=== PATIENT | female | born 1940 | race Caucasian/White ===

== ENCOUNTER → 2017-08-24 | Outpatient (CLI) | payer OTHER ==
[~2017-08-24] MED LIST: Augmentin 875-1 EACH PO; CELE100 PO; HYDR-86 PO; LEVSOD50 PO; LOSA25; OXYACE5T PO; PROM25S PR; Prilosec Otc20 MG PO; [UNRECOGNIZED DRUG - REMARK]
[2017-08-24 14:34] LABS: BASOPHILS ABSOLUTE AUTO 0.05 K/mm3 (0.00-0.23); BASOPHILS PERCENT AUTO 1 % (0-2); EOSINOPHILS ABSOLUTE AUTO 0.06 K/mm3 (0.00-0.68); EOSINOPHILS PERCENT AUTO 1 % (0-6); Hematocrit 39.1 % (33.0-51.0); Hemoglobin 13.2 g/dL (11.5-16.0); IMMATURE GRAN ABSOLUTE AUTO 0.01 K/mm3 (0.00-0.10); IMMATURE GRAN PERCENT AUTO 0 % (0-1); LYMPHOCYTES ABSOLUTE AUTO 1.99 K/mm3 (0.84-5.20); LYMPHOCYTES PERCENT AUTO 33 % (21-46); MONOCYTES PERCENT AUTO 8 % (4-13); Mean Corpuscular HGB 32.9 pg (26.0-34.0); Mean Corpuscular HGB Conc 33.8 g/dL (31.5-36.5); Mean Corpuscular Volume 98 fL (80-100); Mean Platelet Volume 10.7 fL (9.1-12.4); NEUTROPHILS ABSOLUTE AUTO 3.47 K/mm3 (1.96-9.15); NEUTROPHILS PERCENT AUTO 57 % (41-73); Platelet Count 273 K/mm3 (150-400); RDW Coefficient Variation 13.1 % (11.7-14.2); RDW Standard Deviation 46.8 fL (35.1-46.3); Red Blood Cell Count 4.01 M/mm3 (3.80-5.20); White Blood Cell Count 6.08 K/mm3 (4.00-11.30)
[2017-08-24 14:48] LABS: Anion Gap 11 mmol/L (6-16); Blood Urea Nitrogen 16 mg/dL (8-24); Bun/Creatinine Ratio 15.7 (12.0-20.0); CO2, Blood 27 mmol/L (21-32); Calcium, Blood 9.7 mg/dL (8.5-10.1); Chloride, Blood 104 mmol/L (98-108); Creatinine, Blood 1.02 mg/dL (0.40-1.00); Glomerular Filtration Rate 53 (60-); Glucose, Blood 119 mg/dL (70-99); Sodium, Blood 142 mmol/L (136-145)
[2017-08-24 14:52] LABS: Troponin I <0.017 ng/mL (0.000-0.040)
== END ==
LOC: LAB SHORT 14:30 → LAB EV 14:30
PROVIDERS: Family Medicine
DX: I12.9 Hypertensive chronic kidney disease with stage 1 through stage 4 chronic kidney disease, or unspecified chronic kidney disease (principal); N18.2 Chronic kidney disease, stage 2 (mild); E78.2 Mixed hyperlipidemia; E16.2 Hypoglycemia, unspecified
CPT/HCPCS: 80048; 84484; 85025

== ENCOUNTER 2017-08-26 04:24 | Emergency (ER) | payer OTHER ==
[~2017-08-26] VITALS: Ht 162.6 cm; Wt 83.9 kg
[2017-08-26 05:12] LABS: BASOPHILS ABSOLUTE AUTO 0.05 K/mm3 (0.00-0.23); BASOPHILS PERCENT AUTO 1 % (0-2); EOSINOPHILS PERCENT AUTO 2 % (0-6); Hematocrit 37.6 % (33.0-51.0); Hemoglobin 12.3 g/dL (11.5-16.0); IMMATURE GRAN ABSOLUTE AUTO 0.01 K/mm3 (0.00-0.10); IMMATURE GRAN PERCENT AUTO 0 % (0-1); LYMPHOCYTES ABSOLUTE AUTO 2.26 K/mm3 (0.84-5.20); LYMPHOCYTES PERCENT AUTO 35 % (21-46); MONOCYTES ABSOLUTE AUTO 0.67 K/mm3 (0.16-1.47); MONOCYTES PERCENT AUTO 10 % (4-13); Mean Corpuscular HGB 32.5 pg (26.0-34.0); Mean Corpuscular HGB Conc 32.7 g/dL (31.5-36.5); Mean Corpuscular Volume 100 fL (80-100); Mean Platelet Volume 10.3 fL (9.1-12.4); NEUTROPHILS ABSOLUTE AUTO 3.42 K/mm3 (1.96-9.15); NEUTROPHILS PERCENT AUTO 53 % (41-73); Platelet Count 267 K/mm3 (150-400); RDW Coefficient Variation 13.1 % (11.7-14.2); Red Blood Cell Count 3.78 M/mm3 (3.80-5.20); White Blood Cell Count 6.51 K/mm3 (4.00-11.30)
[2017-08-26 05:25] LABS: Source, Urine Clean Catch
[2017-08-26 05:27] LABS: Bilirubin, Urine Neg (Neg); Blood, Urine Neg (Neg); Glucose Qualitative, Urine Neg (Neg); Ketones, Urine Neg (Neg); Leukocyte Esterase, Urine Neg (Neg); Nitrite, Urine Neg (Neg); Protein, Urine Neg (Neg); Specific Gravity, Urine 1.005 (1.003-1.022); Urobilinogen, Urine NORM (Normal)
[2017-08-26 05:30] LABS: Appearance, Urine Clear (Clear); Color, Urine Yellow (P-Yellow)
[2017-08-26 05:35] LABS: Alanine Aminotransfer (ALT/SGP 28 U/L (12-78); Albumin, Blood 3.7 g/dL (3.4-5.0); Albumin/Globulin Ratio 1.2 (0.8-1.8); Alk Phos 61 U/L (50-136); Anion Gap 6 mmol/L (6-16); Aspartate Aminotrans (AST/SGOT 23 U/L (12-37); Bilirubin, Total 0.2 mg/dL (0.1-1.0); Blood Urea Nitrogen 15 mg/dL (8-24); Bun/Creatinine Ratio 17.6 (12.0-20.0); CO2, Blood 25 mmol/L (21-32); Calcium, Blood 8.8 mg/dL (8.5-10.1); Chloride, Blood 109 mmol/L (98-108); Creatinine, Blood 0.85 mg/dL (0.40-1.00); Globulin, Blood 3.2 g/dL (2.2-4.0); Glomerular Filtration Rate >60 (60-); Glucose, Blood 112 mg/dL (70-99); Potassium, Blood 3.9 mmol/L (3.5-5.5); Sodium, Blood 140 mmol/L (136-145); Total Protein, Blood 6.9 g/dL (6.4-8.2); Troponin I <0.015 ng/mL (0.000-0.040)
== END 2017-08-26 06:16 | disposition home or self-care (01) ==
LOC: ER 04:24
PROVIDERS: Emergency Medicine
DX: I10 Essential (primary) hypertension (principal); Z88.2 Allergy status to sulfonamides; Z88.8 Allergy status to other drugs, medicaments and biological substances; Z79.899 Other long term (current) drug therapy; Z79.2 Long term (current) use of antibiotics
CPT/HCPCS: 36415; 71046; 80053; 81003; 84484; 85025; 93005; 93010; 99283

== ENCOUNTER → 2017-10-13 | Outpatient (CLI) | payer OTHER | END | disposition home or self-care (01) | LOC: OLS 15:32 → LAB SHORT 15:32 | PROVIDERS: Obstetrics & Gynecology Gynecology | DX: Z91.89 Other specified personal risk factors, not elsewhere classified (principal) | CPT/HCPCS: 87624; G0123 ==

== ENCOUNTER → 2017-12-07 | Outpatient (CLI) | payer OTHER ==
[2017-12-07 15:03] LABS: BASOPHILS ABSOLUTE AUTO 0.06 K/mm3 (0.00-0.23); BASOPHILS PERCENT AUTO 1 % (0-2); EOSINOPHILS ABSOLUTE AUTO 0.07 K/mm3 (0.00-0.68); EOSINOPHILS PERCENT AUTO 1 % (0-6); Hematocrit 42.5 % (33.0-51.0); Hemoglobin 13.8 g/dL (11.5-16.0); IMMATURE GRAN ABSOLUTE AUTO 0.02 K/mm3 (0.00-0.10); IMMATURE GRAN PERCENT AUTO 0 % (0-1); LYMPHOCYTES ABSOLUTE AUTO 2.09 K/mm3 (0.84-5.20); LYMPHOCYTES PERCENT AUTO 29 % (21-46); MONOCYTES ABSOLUTE AUTO 0.81 K/mm3 (0.16-1.47); MONOCYTES PERCENT AUTO 11 % (4-13); Mean Corpuscular HGB 32.9 pg (26.0-34.0); Mean Corpuscular HGB Conc 32.5 g/dL (31.5-36.5); Mean Corpuscular Volume 101 fL (80-100); Mean Platelet Volume 10.7 fL (9.1-12.4); NEUTROPHILS ABSOLUTE AUTO 4.28 K/mm3 (1.96-9.15); NEUTROPHILS PERCENT AUTO 58 % (41-73); Platelet Count 272 K/mm3 (150-400); RDW Coefficient Variation 13.2 % (11.7-14.2); RDW Standard Deviation 49.7 fL (35.1-46.3); White Blood Cell Count 7.33 K/mm3 (4.00-11.30)
[2017-12-07 15:27] LABS: Anion Gap 10 mmol/L (6-16); Blood Urea Nitrogen 14 mg/dL (8-24); Bun/Creatinine Ratio 13.2 (12.0-20.0); CO2, Blood 27 mmol/L (21-32); Calcium, Blood 9.7 mg/dL (8.5-10.1); Chloride, Blood 103 mmol/L (98-108); Creatinine, Blood 1.06 mg/dL (0.40-1.00); Glomerular Filtration Rate 51 (60-); Glucose, Blood 107 mg/dL (70-99); Sodium, Blood 140 mmol/L (136-145); Thyroid Stimulating Hormone 0.768 uIU/mL (0.360-4.800); Troponin I <0.017 ng/mL (0.000-0.040)
== END | disposition home or self-care (01) ==
LOC: LAB SHORT 15:00 → LAB EV 15:00
PROVIDERS: Family Medicine
DX: E03.9 Hypothyroidism, unspecified (principal); R00.2 Palpitations
CPT/HCPCS: 80048; 84443; 84484; 85025

== ENCOUNTER → 2018-10-19 | Outpatient (CLI) | payer OTHER ==
[~2018-10-19] MED LIST changes: +ACET500 PO; +B Complex-Foli1 EACH PO; +CALCITRATE200 MG PO; +CLON.1 PO; +COQ1050 MG PO; +D-RIBOSE1 GM PO; +DOCU100 PO; +FLAX PO; +GLUCOSAMINE CH1 EAC3 PO; +GUAI600T33 PO; +HYDCHL12.5 PO; +HYDCHL25 PO; +LOSA50 PO; +MELATONIN5 M1 PO; +METO25ER PO; +OMEPRAZOLE20 MG PO; +PROGESTERONE CREAM VAG; +Red Yeast Rice600 MG PO; +VITAMIN D34000 UNIT PO; +[UNRECOGNIZED DRUG - OTHER] PO
[2018-10-21 13:07] LABS: HPV 16 Negative (Negative); HPV 18 Negative (Negative); HPV OTHER HR TYPES Negative (Negative)
== END | disposition home or self-care (01) ==
LOC: LAB 17:36 → LAB SHORT 17:36
PROVIDERS: Obstetrics & Gynecology Gynecology
DX: Z91.89 Other specified personal risk factors, not elsewhere classified (principal)
CPT/HCPCS: 87624; G0123

== ENCOUNTER 2019-03-07 13:03 | Day surgery (SDC) | payer OTHER ==
[~2019-03-07] VITALS: Ht 162 cm; Wt 84.5 kg
--- NOTE | 2019-03-07 13:51 | NUR ---
Ambulatory in Day Surgery History, Chart, Medications and Allergies reviewed before start of procedure.Patient confirms NPO status and agrees with scheduled surgery. Patient reports completing Chlorhexadine shower X2 prior to admission to hospital.Surgical site prepped with 2% Chlorhexidine cloth wipe.
--- NOTE | 2019-03-07 18:52 | NUR ---
PT HAS BEEN STABLE POST OP. PT REMAINS NUMB FROM WAIST DOWN R/T SPINAL ANESTHESIA. PT HAS NOT HAS VOID YET POST OP. NO PAIN. PAS, TEDS AND POLAR PACK IN PLACE. CONT IV FLUIDS ORDERED. AQUACEL CDI. PT TOLERATING REGULAR DIET. VISITING IN ROOM WITH FRIEND. USES CALL LIGHT APPROPRIATELY NEEDED.
[2019-03-08 04:16] LABS: BASOPHILS ABSOLUTE AUTO 0.03 K/mm3 (0.00-0.23); BASOPHILS PERCENT AUTO 0 % (0-2); EOSINOPHILS PERCENT AUTO 0 % (0-6); Hematocrit 33.3 % (33.0-51.0); Hemoglobin 10.9 g/dL (11.5-16.0); IMMATURE GRAN ABSOLUTE AUTO 0.04 K/mm3 (0.00-0.10); IMMATURE GRAN PERCENT AUTO 0 % (0-1); LYMPHOCYTES ABSOLUTE AUTO 1.26 K/mm3 (0.84-5.20); LYMPHOCYTES PERCENT AUTO 10 % (21-46); MONOCYTES ABSOLUTE AUTO 0.97 K/mm3 (0.16-1.47); MONOCYTES PERCENT AUTO 8 % (4-13); Mean Corpuscular HGB 33.4 pg (26.0-34.0); Mean Corpuscular HGB Conc 32.7 g/dL (31.5-36.5); Mean Corpuscular Volume 102 fL (80-100); Mean Platelet Volume 10.9 fL (9.1-12.4); NEUTROPHILS ABSOLUTE AUTO 10.21 K/mm3 (1.96-9.15); NEUTROPHILS PERCENT AUTO 82 % (41-73); Platelet Count 222 K/mm3 (150-400); RDW Coefficient Variation 13.2 % (11.7-14.2); Red Blood Cell Count 3.26 M/mm3 (3.80-5.20); White Blood Cell Count 12.51 K/mm3 (4.00-11.30)
[2019-03-08 04:36] LABS: Bun/Creatinine Ratio 18.9 (12.0-20.0); Calcium, Blood 8.6 mg/dL (8.5-10.1); Creatinine, Blood 1.27 mg/dL (0.40-1.00); Magnesium, Blood 1.9 mg/dL (1.6-2.4); Potassium, Blood 4.2 mmol/L (3.5-5.5)
--- NOTE | 2019-03-08 06:09 | NUR ---
SHIFT SUMMARY: VITOR IS POD1 FOR A LEFT TKA. SHE AMBULATES WITH A GAIT BELT AND FWW, ONE PERSON ASSIST. AQUACELL C/D&I. A&OX4. BEN, PAS AND POLAR PACK IN PLACE. SHE IS UTILIZING THE BEDSIDE COMMODE. BRISK CAPILLARY REFILL BLE. SHE REPORTS THAT THE TORADOL AND TYLENOL ARE CONTROLLING HER PAIN. SHE IS LYING IN BED WITH HER CALL LIGHT IN REACH. SHE IS TOLERATING PO INTAKE WELL.
--- NOTE | 2019-03-08 08:22 | NUR ---
03/08/19 0822 Niya Reese VERIFICATIONS, AUDITS.
[2019-03-08] MEDS ORDERED: ROXICODONE5 MG PO (08:56)
[2019-03-08] MEDS ORDERED: OXYC5 PO (11:19)
[2019-03-08] MEDS ORDERED: ASPI81CH PO (11:19)
--- NOTE | 2019-03-08 15:10 | NUR ---
DISCHARGE PT CLEARED THERAPY, TOLERALTING DIET, PAIN TOLERABLE, VOIDING. SCRIPT & DRSGS SENT. ESCORTED OUT VIA W/C.
== END 2019-03-08 15:22 | disposition home or self-care (01) ==
LOC: ORSCMMR 13:03 → ORD 14:30 → SURS 17:05 → ORSCMMR 03-08 15:22 → ORD 03-11 09:00
PROVIDERS: Orthopaedic Surgery
PROC: 0SRD0J9 Replacement of Left Knee Joint with Synthetic Substitute, Cemented, Open Approach (ICD-10-PCS; principal; 2019-03-07 14:30)
DX: M17.12 Unilateral primary osteoarthritis, left knee (principal); I10 Essential (primary) hypertension; E03.9 Hypothyroidism, unspecified; E66.8 Other obesity; Z68.32 Body mass index [BMI] 32.0-32.9, adult; Z79.899 Other long term (current) drug therapy
CPT/HCPCS: 36415; 73560-LT; 80048; 83735; 85025; 88300; 97110; 97116; 97162; 97530; C1713; C1776; J0171; J0690; J0735; J1100; J1885; J2250; J2405; J2704; J2795; J3010; J7120

== ENCOUNTER → 2019-06-02 | Outpatient (CLI) | payer OTHER ==
[~2019-06-02] MED LIST changes: +ASPI81CH PO; +OXYC5 PO; +ROXICODONE5 MG PO
[2019-06-02 14:48] LABS: BASOPHILS ABSOLUTE AUTO 0.06 K/mm3 (0.00-0.23); BASOPHILS PERCENT AUTO 1 % (0-2); EOSINOPHILS ABSOLUTE AUTO 0.09 K/mm3 (0.00-0.68); EOSINOPHILS PERCENT AUTO 1 % (0-6); Hemoglobin 12.8 g/dL (11.5-16.0); IMMATURE GRAN ABSOLUTE AUTO 0.02 K/mm3 (0.00-0.10); IMMATURE GRAN PERCENT AUTO 0 % (0-1); LYMPHOCYTES PERCENT AUTO 28 % (21-46); MONOCYTES ABSOLUTE AUTO 0.92 K/mm3 (0.16-1.47); MONOCYTES PERCENT AUTO 11 % (4-13); Mean Corpuscular HGB 32.6 pg (26.0-34.0); Mean Corpuscular HGB Conc 32.8 g/dL (31.5-36.5); Mean Corpuscular Volume 99 fL (80-100); Mean Platelet Volume 11.3 fL (9.1-12.4); NEUTROPHILS ABSOLUTE AUTO 5.21 K/mm3 (1.96-9.15); NEUTROPHILS PERCENT AUTO 60 % (41-73); Platelet Count 321 K/mm3 (150-400); RDW Coefficient Variation 13.3 % (11.7-14.2); RDW Standard Deviation 48.5 fL (35.1-46.3); Red Blood Cell Count 3.93 M/mm3 (3.80-5.20)
[2019-06-02 16:19] LABS: Anion Gap 6 mmol/L (6-16); Blood Urea Nitrogen 24 mg/dL (8-24); Bun/Creatinine Ratio 18.5 (12.0-20.0); CO2, Blood 27 mmol/L (21-32); Calcium, Blood 9.4 mg/dL (8.5-10.1); Chloride, Blood 105 mmol/L (98-108); Glomerular Filtration Rate 42 (60-); Glucose, Blood 113 mg/dL (70-99); Potassium, Blood 4.3 mmol/L (3.5-5.5); Sodium, Blood 138 mmol/L (136-145); Troponin I <0.015 ng/mL (0.000-0.040)
[2019-06-02 16:24] LABS: Thyroid Stimulating Hormone 0.779 uIU/mL (0.360-4.800)
== END | disposition home or self-care (01) ==
LOC: LAB EV 14:44 → LAB SHORT 14:44
PROVIDERS: Family Medicine
DX: R42 Dizziness and giddiness (principal); R53.83 Other fatigue
CPT/HCPCS: 80048; 83880; 84443; 84484; 85025

== ENCOUNTER → 2020-08-04 | Outpatient (CLI) | payer MEDICARE ==
[~2020-08-04] MED LIST changes: +CLON.1
[2020-08-04 10:52] LABS: BASOPHILS ABSOLUTE AUTO 0.04 K/mm3 (0.00-0.23); BASOPHILS PERCENT AUTO 1 % (0-2); EOSINOPHILS ABSOLUTE AUTO 0.03 K/mm3 (0.00-0.68); EOSINOPHILS PERCENT AUTO 1 % (0-6); Hematocrit 39.4 % (33.0-51.0); Hemoglobin 13.5 g/dL (11.5-16.0); IMMATURE GRAN ABSOLUTE AUTO 0.02 K/mm3 (0.00-0.10); IMMATURE GRAN PERCENT AUTO 0 % (0-1); LYMPHOCYTES ABSOLUTE AUTO 1.58 K/mm3 (0.84-5.20); LYMPHOCYTES PERCENT AUTO 25 % (21-46); MONOCYTES ABSOLUTE AUTO 0.55 K/mm3 (0.16-1.47); MONOCYTES PERCENT AUTO 9 % (4-13); Mean Corpuscular HGB 33.3 pg (26.0-34.0); Mean Corpuscular HGB Conc 34.3 g/dL (31.5-36.5); Mean Corpuscular Volume 97 fL (80-100); Mean Platelet Volume 10.5 fL (9.1-12.4); NEUTROPHILS PERCENT AUTO 65 % (41-73); Platelet Count 276 K/mm3 (150-400); RDW Coefficient Variation 12.5 % (11.7-14.2); Red Blood Cell Count 4.05 M/mm3 (3.80-5.20); White Blood Cell Count 6.42 K/mm3 (4.00-11.30)
[2020-08-04 11:50] LABS: Albumin, Blood 4.1 g/dL (3.4-5.0); Albumin/Globulin Ratio 1.1 (0.8-1.8); Bilirubin, Total 0.5 mg/dL (0.1-1.0); Calcium, Blood 9.2 mg/dL (8.5-10.1); Creatinine, Blood 1.06 mg/dL (0.40-1.00); Globulin, Blood 3.6 g/dL (2.2-4.0); Potassium, Blood 4.1 mmol/L (3.5-5.5); Thyroid Stimulating Hormone 0.802 uIU/mL (0.360-4.800); Total Protein, Blood 7.7 g/dL (6.4-8.2)
== END | disposition home or self-care (01) ==
LOC: LAB EV 10:48 → LAB SHORT 10:48
PROVIDERS: Physician Assistant
DX: E03.9 Hypothyroidism, unspecified (principal); R42 Dizziness and giddiness
CPT/HCPCS: 80053; 84443; 85025

== ENCOUNTER 2020-08-08 09:03 | Emergency (ER) | payer MEDICARE ==
[~2020-08-08] VITALS: Ht 165.1 cm; Wt 83.0 kg
[~2020-08-08 09:03] MED LIST changes: -CLON.1
[2020-08-08 10:28] LABS: BASOPHILS ABSOLUTE AUTO 0.05 K/mm3 (0.00-0.23); BASOPHILS PERCENT AUTO 1 % (0-2); EOSINOPHILS ABSOLUTE AUTO 0.04 K/mm3 (0.00-0.68); EOSINOPHILS PERCENT AUTO 1 % (0-6); Hematocrit 38.7 % (33.0-51.0); Hemoglobin 13.3 g/dL (11.5-16.0); IMMATURE GRAN ABSOLUTE AUTO 0.01 K/mm3 (0.00-0.10); IMMATURE GRAN PERCENT AUTO 0 % (0-1); LYMPHOCYTES ABSOLUTE AUTO 1.72 K/mm3 (0.84-5.20); LYMPHOCYTES PERCENT AUTO 25 % (21-46); MONOCYTES ABSOLUTE AUTO 0.76 K/mm3 (0.16-1.47); MONOCYTES PERCENT AUTO 11 % (4-13); Mean Corpuscular HGB 33.8 pg (26.0-34.0); Mean Corpuscular HGB Conc 34.4 g/dL (31.5-36.5); Mean Corpuscular Volume 99 fL (80-100); Mean Platelet Volume 10.3 fL (9.1-12.4); NEUTROPHILS ABSOLUTE AUTO 4.24 K/mm3 (1.96-9.15); NEUTROPHILS PERCENT AUTO 62 % (41-73); Platelet Count 242 K/mm3 (150-400); RDW Coefficient Variation 12.8 % (11.7-14.2); RDW Standard Deviation 46.5 fL (35.1-46.3); Red Blood Cell Count 3.93 M/mm3 (3.80-5.20); White Blood Cell Count 6.82 K/mm3 (4.00-11.30)
[2020-08-08] MEDS ORDERED: CLON.1 (11:00)
[2020-08-08 11:01] LABS: Alanine Aminotransfer (ALT/SGP 30 U/L (12-78); Albumin, Blood 3.9 g/dL (3.4-5.0); Albumin/Globulin Ratio 1.2 (0.8-1.8); Alk Phos 63 U/L (50-136); Anion Gap 7 mmol/L (6-16); Aspartate Aminotrans (AST/SGOT 26 U/L (12-37); Bilirubin, Total 0.5 mg/dL (0.1-1.0); Blood Urea Nitrogen 15 mg/dL (8-24); Bun/Creatinine Ratio 16.2 (12.0-20.0); CO2, Blood 26 mmol/L (21-32); Calcium, Blood 9.2 mg/dL (8.5-10.1); Chloride, Blood 98 mmol/L (98-108); Creatinine, Blood 0.93 mg/dL (0.40-1.00); Free Thyroxine 1.34 ng/dL (0.70-1.60); Globulin, Blood 3.3 g/dL (2.2-4.0); Glomerular Filtration Rate >60 (60-); Glucose, Blood 110 mg/dL (70-99); Potassium, Blood 4.5 mmol/L (3.5-5.5); Sodium, Blood 131 mmol/L (136-145); Thyroid Stimulating Hormone 0.568 uIU/mL (0.360-4.800); Total Protein, Blood 7.2 g/dL (6.4-8.2)
== END 2020-08-08 12:12 | disposition home or self-care (01) ==
LOC: ER 09:03
PROVIDERS: Emergency Medicine
DX: I10 Essential (primary) hypertension (principal); E03.9 Hypothyroidism, unspecified; Z91.14 Patient's other noncompliance with medication regimen; Z88.2 Allergy status to sulfonamides; Z88.1 Allergy status to other antibiotic agents; Z88.8 Allergy status to other drugs, medicaments and biological substances; Z79.899 Other long term (current) drug therapy
CPT/HCPCS: 36415; 80053; 84439; 84443; 85025; 93005; 93010; 99284-25

== ENCOUNTER 2021-11-12 06:12 | Emergency (ER) | payer MEDICARE ==
[~2021-11-12] VITALS: Ht 157.5 cm; Wt 81.7 kg
[~2021-11-12 06:12] MED LIST changes: +CLON.1
[2021-11-12] MEDS ORDERED: Robaxin750 MG PO (10:48)
[2021-11-12] MEDS ORDERED: GABA300 PO (10:48)
== END 2021-11-12 11:08 | disposition home or self-care (01) ==
LOC: ER 06:12
DX: M54.32 Sciatica, left side (principal); I10 Essential (primary) hypertension; E03.9 Hypothyroidism, unspecified; Z88.2 Allergy status to sulfonamides; Z88.7 Allergy status to serum and vaccine; Z88.8 Allergy status to other drugs, medicaments and biological substances
CPT/HCPCS: 72131; 99284-25; A9270

== ENCOUNTER 2023-01-10 16:56 | Emergency (ER) | payer MEDICARE ==
[~2023-01-10] VITALS: Ht 157.5 cm; Wt 81.7 kg
[~2023-01-10 16:56] MED LIST changes: +GABA300 PO; +Robaxin750 MG PO
[2023-01-10 17:20] LABS: BASOPHILS ABSOLUTE AUTO 0.03 K/mm3 (0.00-0.23); BASOPHILS PERCENT AUTO 1 % (0-2); EOSINOPHILS ABSOLUTE AUTO 0.08 K/mm3 (0.00-0.68); EOSINOPHILS PERCENT AUTO 1 % (0-6); Hematocrit 35.4 % (33.0-51.0); Hemoglobin 12.1 g/dL (11.5-16.0); IMMATURE GRAN ABSOLUTE AUTO 0.01 K/mm3 (0.00-0.10); IMMATURE GRAN PERCENT AUTO 0 % (0-1); LYMPHOCYTES ABSOLUTE AUTO 1.71 K/mm3 (0.84-5.20); LYMPHOCYTES PERCENT AUTO 28 % (21-46); MONOCYTES ABSOLUTE AUTO 0.64 K/mm3 (0.16-1.47); MONOCYTES PERCENT AUTO 10 % (4-13); Mean Corpuscular HGB Conc 34.2 g/dL (31.5-36.5); Mean Corpuscular Volume 97 fL (80-100); Mean Platelet Volume 10.9 fL (9.1-12.4); NEUTROPHILS ABSOLUTE AUTO 3.73 K/mm3 (1.96-9.15); NEUTROPHILS PERCENT AUTO 60 % (41-73); Platelet Count 214 K/mm3 (150-400); RDW Coefficient Variation 13.4 % (11.7-14.2); RDW Standard Deviation 47.9 fL (35.1-46.3); Red Blood Cell Count 3.67 M/mm3 (3.80-5.20)
[2023-01-10 17:49] LABS: Albumin, Blood 3.7 g/dL (3.4-5.0); Albumin/Globulin Ratio 1.1 (0.8-1.8); Bilirubin, Total 0.4 mg/dL (0.1-1.0); Bun/Creatinine Ratio 16.3 (12.0-20.0); Calcium, Blood 9.4 mg/dL (8.5-10.1); Creatinine, Blood 0.92 mg/dL (0.40-1.00); Globulin, Blood 3.3 g/dL (2.2-4.0); Potassium, Blood 3.9 mmol/L (3.5-5.5)
[2023-01-10 20:00] VITALS: BP 166/77
== END 2023-01-10 21:48 | disposition home or self-care (01) ==
LOC: ER 16:56
PROVIDERS: Student in an Organized Health Care Education/Training Program
DX: I10 Essential (primary) hypertension (principal); Z88.2 Allergy status to sulfonamides; Z88.8 Allergy status to other drugs, medicaments and biological substances; Z88.7 Allergy status to serum and vaccine; Z79.899 Other long term (current) drug therapy; Z79.890 Hormone replacement therapy
CPT/HCPCS: 71046; 80053; 84484; 85025; 93005; 93010; 99285-25

== ENCOUNTER 2023-02-03 09:10 | Day surgery (SDC) | payer MEDICARE ==
[~2023-02-03] VITALS: Ht 157.5 cm; Wt 82.5 kg
[2023-02-03] MEDS ORDERED: PREG150 PO (09:36)
--- NOTE | 2023-02-03 09:42 | NUR ---
02/03/23 0942 Duncan Saez CALL LIGHT WITHIN REACH. TETRACAINE IN LEFT EYE [id number] AND PLEDGETT IN AT 0942
[2023-02-03 11:00] VITALS: BP 137/61
--- NOTE | 2023-02-03 11:04 | NUR ---
02/03/23 1104 TAM AMARO IV REMOVED. GOPAL WELL. CANNULA INTACT. WNL
== END 2023-02-03 11:19 | disposition home or self-care (01) ==
LOC: ORSCSDS 09:10
PROVIDERS: Student in an Organized Health Care Education/Training Program
PROC: 08DK3ZZ Extraction of Left Lens, Percutaneous Approach (ICD-10-PCS; principal; 2023-02-03 10:30)
DX: H25.12 Age-related nuclear cataract, left eye (principal); Z96.1 Presence of intraocular lens; G62.9 Polyneuropathy, unspecified; Z95.0 Presence of cardiac pacemaker; I12.9 Hypertensive chronic kidney disease with stage 1 through stage 4 chronic kidney disease, or unspecified chronic kidney disease; N18.9 Chronic kidney disease, unspecified; Z79.899 Other long term (current) drug therapy
CPT/HCPCS: J2250; J7040; V2632

== ENCOUNTER 2023-03-05 13:48 | Emergency (ER) | payer MEDICARE ==
[~2023-03-05] VITALS: Ht 160 cm; Wt 81.7 kg
[~2023-03-05 13:48] MED LIST changes: +PREG150 PO
[2023-03-05 14:00] VITALS: BP 157/87
[2023-03-05] MEDS ORDERED: PRED20 PO (16:32)
[2023-03-05] MEDS ORDERED: Robaxin750 MG PO (16:32)
[2023-03-05] MEDS ORDERED: LIDOCAINE1 EACH TOP (16:32)
== END 2023-03-05 17:49 | disposition home or self-care (01) ==
LOC: ER 13:48
DX: M54.32 Sciatica, left side (principal); M54.31 Sciatica, right side; I10 Essential (primary) hypertension; Z88.2 Allergy status to sulfonamides; Z88.8 Allergy status to other drugs, medicaments and biological substances; Z88.7 Allergy status to serum and vaccine; Z79.899 Other long term (current) drug therapy; Z95.0 Presence of cardiac pacemaker
CPT/HCPCS: 96372; 99283-25; A9270; J1885; J7512

== ENCOUNTER 2023-04-16 16:00 | Inpatient (IN) | payer MEDICARE, MEDICAID ==
[~2023-04-16] VITALS: Ht 157.5 cm; Wt 84.0 kg
[~2023-04-16 16:00] MED LIST changes: +LIDOCAINE1 EACH TOP; +PRED20 PO
[2023-04-16] MEDS ORDERED: CATAPRES0.1 MG PO (16:34)
[2023-04-16] MEDS ORDERED: Methocarbamol500 MG PO (16:34)
[2023-04-16] MEDS ORDERED: HYDROCODONE-AC1 EAC7 PO (16:34)
[2023-04-16] MEDS ORDERED: PREG150 PO (16:35)
[2023-04-16] MEDS ORDERED: LOSA50 PO (16:36)
[2023-04-16] MEDS ORDERED: HYDCHL25 PO (16:36)
[2023-04-16 17:21] LABS: BASOPHILS ABSOLUTE AUTO 0.03 K/mm3 (0.00-0.23); BASOPHILS PERCENT AUTO 0 % (0-2); EOSINOPHILS ABSOLUTE AUTO 0.14 K/mm3 (0.00-0.68); EOSINOPHILS PERCENT AUTO 1 % (0-6); Hematocrit 24.5 % (33.0-51.0); Hemoglobin 8.2 g/dL (11.5-16.0); IMMATURE GRAN ABSOLUTE AUTO 0.03 K/mm3 (0.00-0.10); IMMATURE GRAN PERCENT AUTO 0 % (0-1); LYMPHOCYTES ABSOLUTE AUTO 1.29 K/mm3 (0.84-5.20); LYMPHOCYTES PERCENT AUTO 13 % (21-46); MONOCYTES ABSOLUTE AUTO 0.76 K/mm3 (0.16-1.47); MONOCYTES PERCENT AUTO 8 % (4-13); Mean Corpuscular HGB 32.9 pg (26.0-34.0); Mean Corpuscular HGB Conc 33.5 g/dL (31.5-36.5); Mean Corpuscular Volume 98 fL (80-100); Mean Platelet Volume 10.3 fL (9.1-12.4); NEUTROPHILS ABSOLUTE AUTO 7.62 K/mm3 (1.96-9.15); NEUTROPHILS PERCENT AUTO 77 % (41-73); Platelet Count 312 K/mm3 (150-400); RDW Coefficient Variation 13.4 % (11.7-14.2); RDW Standard Deviation 47.9 fL (35.1-46.3); Red Blood Cell Count 2.49 M/mm3 (3.80-5.20); White Blood Cell Count 9.87 K/mm3 (4.00-11.30)
[2023-04-16 17:48] LABS: Albumin, Blood 2.7 g/dL (3.4-5.0); Albumin/Globulin Ratio 0.8 (0.8-1.8); Bilirubin, Total 0.3 mg/dL (0.1-1.0); Calcium, Blood 8.8 mg/dL (8.5-10.1); Creatinine, Blood 1.18 mg/dL (0.40-1.00); Globulin, Blood 3.5 g/dL (2.2-4.0); Total Protein, Blood 6.2 g/dL (6.4-8.2)
[2023-04-16 18:53] LABS: Influenza A, PCR NEGATIVE (NEGATIVE); Influenza B, PCR NEGATIVE (NEGATIVE); Resp Syncytial Virus, PCR NEGATIVE (NEGATIVE); SARS-Cov-2 (COVID-19) PCR, MMC NEGATIVE (NEGATIVE)
[2023-04-16 20:52] LABS: Anti-Xa UFH, PHA Monitoring <0.10 IU/mL; International Normalized Ratio 0.94; Prothrombin Time Results 9.9 Sec (9.7-11.5)
[2023-04-16] MEDS ORDERED: Robaxin750 MG PO (20:58)
[2023-04-16] MEDS ORDERED: EUTHYROX50 MCG PO (21:09)
[2023-04-16 21:24] VITALS: BP 135/57
[2023-04-17 03:48] VITALS: BP 145/52
--- NOTE | 2023-04-17 04:10 | NUR ---
SHIFT SUMMARY/ADMISSION NOTE PATIENT ARRIVED TO UNIT FROM ED AT 2100. IS A/Ox4, PLEASANT/BRIGHT AFFECT. C/O SOB WITH JUST TRANSFERRING FROM [facility] TO BED, UNASSISTED, NEWLY Dx WITH PULMONARY EMBOLISM. ON O2 2L VIA NC TO MAINTAIN SpO2 >90%. QUICKLY DESATS TO LOW/MID 80s ON RA WITH AMBULATING EVEN SHORT DISTANCE TO BATHROOM. PATIENT AGREES TO USE BSC. REQUIRES SBA FOR TRANSFERS TO BSC, INDEPENDENT IN BED. MILD BLE WEAKNESS, HAD LUMBAR SPINAL FUSION 8 DAYS AGO, INCISION HEALING WELL, CRUDE OIL TREATER WITH SOME STERI STRIPS REMAINING. ON TELE, AFib PACED AT HR OF 60. NO COMPLAINTS OF PAIN NOR ANY FURTHER SOB/DYSPNEA THROUGHOUT REMAINDER OF SHIFT. NO ACUTE CHANGES OVERNIGHT. BED LOCKED IN LOWEST POSITION, HOB ELEVATED FOR PATIENT COMFORT, CALL LIGHT WITHIN REACH.
[2023-04-17 05:12] LABS: Hematocrit 24.7 % (33.0-51.0); Hemoglobin 8.2 g/dL (11.5-16.0); Mean Corpuscular HGB 32.3 pg (26.0-34.0); Mean Corpuscular HGB Conc 33.2 g/dL (31.5-36.5); Mean Corpuscular Volume 97 fL (80-100); Mean Platelet Volume 10.7 fL (9.1-12.4); Platelet Count 314 K/mm3 (150-400); RDW Coefficient Variation 13.5 % (11.7-14.2); RDW Standard Deviation 47.8 fL (35.1-46.3); Red Blood Cell Count 2.54 M/mm3 (3.80-5.20); White Blood Cell Count 8.33 K/mm3 (4.00-11.30)
[2023-04-17 05:49] LABS: Bun/Creatinine Ratio 21.5 (12.0-20.0); Calcium, Blood 8.7 mg/dL (8.5-10.1); Creatinine, Blood 1.07 mg/dL (0.40-1.00); Potassium, Blood 3.5 mmol/L (3.5-5.5)
[2023-04-17 08:05] VITALS: BP 132/52
--- NOTE | 2023-04-17 15:19 | NUR ---
SHIFT SUMMARY MS EWING IS OX4. HAS CHRONIC BACK AND HIP PAIN. GIVEN NORCO WHICH GAVE SOME RELIEF. SHE DOES NOT WANT HEAT OR COOL APPLICATIONS. SHE HAS STEADY GAIT TO TRANSFER TO THE BEDSIDE COMMODE AND HAS DONE WELL ON THE OXYGEN 3L NC. NO CALLS FROM REFINING MACHINE OPERATOR. BED LOW, CALL LIGHT IN REACH.
[2023-04-17 16:25] VITALS: BP 140/71
[2023-04-17 19:58] VITALS: BP 136/55
--- NOTE | 2023-04-18 03:35 | NUR ---
SHIFT SUMMARY PATIENT A/Ox4, PLEASANT, COOPERATIVE. DENIES SOB/DYSPNEA. C/O CHRONIC LOW BACK PAIN, MEDICATED PER EMAR, TOLERATED WELL. NO ACUTE CHANGES NOTED OVERNIGHT. HOB ELEVATED FOR COMFORT, CALL LIGHT WITHIN REACH.
[2023-04-18 04:04] VITALS: BP 141/68
[2023-04-18 05:11] LABS: BASOPHILS ABSOLUTE AUTO 0.04 K/mm3 (0.00-0.23); BASOPHILS PERCENT AUTO 1 % (0-2); EOSINOPHILS ABSOLUTE AUTO 0.31 K/mm3 (0.00-0.68); EOSINOPHILS PERCENT AUTO 4 % (0-6); Hematocrit 24.9 % (33.0-51.0); Hemoglobin 8.2 g/dL (11.5-16.0); IMMATURE GRAN ABSOLUTE AUTO 0.04 K/mm3 (0.00-0.10); IMMATURE GRAN PERCENT AUTO 1 % (0-1); LYMPHOCYTES ABSOLUTE AUTO 2.23 K/mm3 (0.84-5.20); LYMPHOCYTES PERCENT AUTO 27 % (21-46); MONOCYTES ABSOLUTE AUTO 0.78 K/mm3 (0.16-1.47); MONOCYTES PERCENT AUTO 9 % (4-13); Mean Corpuscular HGB 32.4 pg (26.0-34.0); Mean Corpuscular HGB Conc 32.9 g/dL (31.5-36.5); Mean Corpuscular Volume 98 fL (80-100); Mean Platelet Volume 10.3 fL (9.1-12.4); NEUTROPHILS ABSOLUTE AUTO 4.92 K/mm3 (1.96-9.15); NEUTROPHILS PERCENT AUTO 59 % (41-73); Platelet Count 363 K/mm3 (150-400); RDW Coefficient Variation 13.4 % (11.7-14.2); RDW Standard Deviation 48.6 fL (35.1-46.3); Red Blood Cell Count 2.53 M/mm3 (3.80-5.20); White Blood Cell Count 8.32 K/mm3 (4.00-11.30)
[2023-04-18 05:55] LABS: Albumin, Blood 2.5 g/dL (3.4-5.0); Albumin/Globulin Ratio 0.7 (0.8-1.8); Bilirubin, Total 0.3 mg/dL (0.1-1.0); Bun/Creatinine Ratio 19.7 (12.0-20.0); Calcium, Blood 8.5 mg/dL (8.5-10.1); Creatinine, Blood 0.91 mg/dL (0.40-1.00); Globulin, Blood 3.5 g/dL (2.2-4.0); Potassium, Blood 3.6 mmol/L (3.5-5.5)
[2023-04-18 08:16] VITALS: BP 157/76
--- NOTE | 2023-04-18 12:55 | NUR ---
RN NOTE MS EWING HAD HOME OXYGEN EVALUATION BY Jenae AND HAS BEEN OFF OXYGEN SINCE AUTO MOTOR MECHANIC, HAS SHOWERED AND GONE TO THE BATHROOM OFF OXYGEN BEFORE WALKING IN THE HALLS WITH Shanel. SHE HAD NO SHORTNESS OF BREATH. SHE IS CONCERNED ABOUT LEAVING THE HOSPITAL WITHOUT OXYGEN AND SHE DISCUSSED HER CONCERN WITH DR MUÑOZ. CLAUDIA, COSTUME SEAMSTRESS, SAID THAT SHE WILL NOT QUALIFY FOR HOME OXYGEN BUT CAN GET IT FOR $200/MONTH. THIS WAS OFFERED TO HER AN OPTION WHICH SHE DECLINED. SHE SAID SHE HAS AN EMERGENCY CALL SYSTEM SET UP AT HOME CALLED [facility] WHICH SHE CAN USE TO GET MEDICAL HELP IF SHE NEEDS IT.
[2023-04-18] MEDS ORDERED: ACET500 PO (13:28)
[2023-04-18] MEDS ORDERED: XARELTO20 MG PO (13:29)
--- NOTE | 2023-04-18 14:21 | NUR ---
DISCHARGE NOTE MS EWING LEFT MEDICAL UNIT VIA W/C WITH SOFTWARE SALES MANAGER ESCORT TO MEET HER RIDE AT 1420HRS. NO CONCERNS AT TIME OF DISCHARGED VOICED BY PT. SHE VERBALISED UNDERSTANDING OF WRITTEN AND VERBAL DISCHARGE INSTRUCTIONS. SHE HAS XERELTO SAMPLES THAT DR MUÑOZ GAVE HER. PIV REMOVED INTACT PRIOR TO DISCHARGE.
== END 2023-04-18 14:21 | disposition home health service (06) | DRG 175 ==
LOC: ER 16:00 → MEDS 20:07
PROVIDERS: Family Medicine; Nurse Practitioner Acute Care; Student in an Organized Health Care Education/Training Program; ADMIT Internal Medicine
DX: I26.99 Other pulmonary embolism without acute cor pulmonale (principal); J96.01 Acute respiratory failure with hypoxia; G89.29 Other chronic pain; M54.50 Low back pain, unspecified; I10 Essential (primary) hypertension; E03.9 Hypothyroidism, unspecified; Z11.52 Encounter for screening for COVID-19
CPT/HCPCS: 0241U; 36415; 71260; 80048; 80053; 83880; 84484; 85025; 85027; 85520; 85610; 85730; 93005; 93010; 93306; 93970; 94761; 99285-25; A9270; J1650; Q9967

== ENCOUNTER 2023-04-21 07:28 | Emergency (ER) | payer MEDICARE, MEDICAID ==
[~2023-04-21] VITALS: Ht 157.5 cm; Wt 77.1 kg
[~2023-04-21 07:28] MED LIST changes: +CATAPRES0.1 MG PO; +EUTHYROX50 MCG PO; +HYDROCODONE-AC1 EAC7 PO; +Methocarbamol500 MG PO; +XARELTO20 MG PO
[2023-04-21 08:08] LABS: BASOPHILS ABSOLUTE AUTO 0.05 K/mm3 (0.00-0.23); BASOPHILS PERCENT AUTO 1 % (0-2); EOSINOPHILS ABSOLUTE AUTO 0.27 K/mm3 (0.00-0.68); EOSINOPHILS PERCENT AUTO 4 % (0-6); Hematocrit 29.6 % (33.0-51.0); Hemoglobin 9.7 g/dL (11.5-16.0); IMMATURE GRAN ABSOLUTE AUTO 0.04 K/mm3 (0.00-0.10); IMMATURE GRAN PERCENT AUTO 1 % (0-1); LYMPHOCYTES ABSOLUTE AUTO 1.41 K/mm3 (0.84-5.20); LYMPHOCYTES PERCENT AUTO 19 % (21-46); MONOCYTES ABSOLUTE AUTO 0.78 K/mm3 (0.16-1.47); MONOCYTES PERCENT AUTO 10 % (4-13); Mean Corpuscular HGB 32.2 pg (26.0-34.0); Mean Corpuscular HGB Conc 32.8 g/dL (31.5-36.5); Mean Corpuscular Volume 98 fL (80-100); Mean Platelet Volume 9.7 fL (9.1-12.4); NEUTROPHILS ABSOLUTE AUTO 4.95 K/mm3 (1.96-9.15); NEUTROPHILS PERCENT AUTO 66 % (41-73); Platelet Count 493 K/mm3 (150-400); RDW Coefficient Variation 14.1 % (11.7-14.2); RDW Standard Deviation 49.5 fL (35.1-46.3); Red Blood Cell Count 3.01 M/mm3 (3.80-5.20)
[2023-04-21 08:39] LABS: Albumin/Globulin Ratio 0.8 (0.8-1.8); Bilirubin, Total 0.3 mg/dL (0.1-1.0); Calcium, Blood 9.2 mg/dL (8.5-10.1); Globulin, Blood 3.7 g/dL (2.2-4.0); Potassium, Blood 3.7 mmol/L (3.5-5.5); Total Protein, Blood 6.7 g/dL (6.4-8.2)
[2023-04-21 10:17] VITALS: BP 146/76
== END 2023-04-21 10:17 | disposition home or self-care (01) ==
LOC: ER 07:28
PROVIDERS: Emergency Medicine
DX: I26.99 Other pulmonary embolism without acute cor pulmonale (principal); I12.9 Hypertensive chronic kidney disease with stage 1 through stage 4 chronic kidney disease, or unspecified chronic kidney disease; N18.9 Chronic kidney disease, unspecified; E03.9 Hypothyroidism, unspecified; Z79.01 Long term (current) use of anticoagulants; Z79.890 Hormone replacement therapy; Z79.899 Other long term (current) drug therapy; Z88.2 Allergy status to sulfonamides; Z88.8 Allergy status to other drugs, medicaments and biological substances; Z88.7 Allergy status to serum and vaccine
CPT/HCPCS: 80053; 83880; 85025; 93005; 93010; 99284-25

== ENCOUNTER 2024-02-22 07:05 | Day surgery (SDC) | payer MEDICARE ==
[~2024-02-22] VITALS: Ht 157.5 cm; Wt 83.6 kg
[~2024-02-22 07:05] MED LIST changes: +Lactated Ringer's 1,000 ML IV ONE; +Lidocaine 1%-Epineph 1:100000 20 ML MDV ONE
[2024-02-22] MEDS ORDERED: propofoL 20 ML IV ONE ×2 (07:50→08:51)
[2024-02-22] MEDS ORDERED: Lactated Ringer's 1,000 ML IV ONE (07:57)
[2024-02-22] MEDS ORDERED: CeFAZolin Sodium 2,000 MG VIAL ONE (08:02)
[2024-02-22] MEDS ORDERED: NS 50 ML IV ONE (08:03)
--- NOTE | 2024-02-22 08:33 | NUR ---
02/22/24 0833 Kaylin Chow INJECTED TOTAL OF 9ML OF LOCAL IN RIGHT HAND. PATIENT TOLERATED WELL. INJECTION START AT 0830.
[2024-02-22 08:57] VITALS: BP 109/52
--- NOTE | 2024-02-22 08:59 | NUR ---
02/22/24 0859 TAM AMARO PT PLACED 5L O2 VIA N/C JUST POST-OP. O2 WAS IN THE UPPER 80'S PRIOR TO O2 SUPPLIMENT. WENT UP TO 99% ON 5L. DECREASED O2 TO 2L AND PT O2 SAT IS 98% AT PRESENT.
== END 2024-02-22 09:25 | disposition home or self-care (01) ==
LOC: ORSCSDS 07:05
PROVIDERS: Orthopaedic Surgery
PROC: 01N54ZZ Release Median Nerve, Percutaneous Endoscopic Approach (ICD-10-PCS; principal; 2024-02-22 08:45)
DX: G56.03 Carpal tunnel syndrome, bilateral upper limbs (principal); E78.5 Hyperlipidemia, unspecified; I12.9 Hypertensive chronic kidney disease with stage 1 through stage 4 chronic kidney disease, or unspecified chronic kidney disease; N18.9 Chronic kidney disease, unspecified; F32.A Depression, unspecified; Z79.899 Other long term (current) drug therapy
CPT/HCPCS: 82947; J0690; J2704; J7120

== ENCOUNTER 2024-11-12 14:22 | Inpatient (IN) | payer MEDICARE ==
[~2024-11-12] VITALS: Ht 157.5 cm; Wt 80.7 kg
[~2024-11-12 14:22] MED LIST changes: -Lactated Ringer's 1,000 ML IV ONE; -Lidocaine 1%-Epineph 1:100000 20 ML MDV ONE
[2024-11-12 15:49] LABS: Alanine Aminotransfer (ALT/SGP 16.0 U/L (12-78); Albumin, Blood 3.0 g/dL (3.4-5.0); Albumin/Globulin Ratio 0.8 (0.8-1.8); Anion Gap 7.0 mmol/L (3-11); Aspartate Aminotrans (AST/SGOT 22.0 U/L (12-37); Bilirubin, Total 0.5 mg/dL (0.1-1.0); Blood Urea Nitrogen 18.0 mg/dL (8-24); CO2, Blood 31.0 mmol/L (21-32); Calcium, Blood 8.9 mg/dL (8.5-10.1); Chloride, Blood 95.0 mmol/L (98-108); Creatinine, Blood 1.01 mg/dL (0.40-1.00); Globulin, Blood 3.9 g/dL (2.2-4.0); Glucose, Blood 120.0 mg/dL (70-99); Potassium, Blood 3.8 mmol/L (3.5-5.5); Sodium, Blood 129.0 mmol/L (136-145); Total Protein, Blood 6.9 g/dL (6.4-8.2)
[2024-11-12 15:52] LABS: BASOPHILS ABSOLUTE AUTO 0.04 K/mm3 (0.00-0.23); BASOPHILS PERCENT AUTO 1 % (0-2); EOSINOPHILS ABSOLUTE AUTO 0.20 K/mm3 (0.00-0.68); EOSINOPHILS PERCENT AUTO 3 % (0-6); Hematocrit 32.5 % (33.0-51.0); Hemoglobin 10.9 g/dL (11.5-16.0); IMMATURE GRAN ABSOLUTE AUTO 0.02 K/mm3 (0.00-0.10); IMMATURE GRAN PERCENT AUTO 0 % (0-1); LYMPHOCYTES ABSOLUTE AUTO 1.50 K/mm3 (0.84-5.20); LYMPHOCYTES PERCENT AUTO 21 % (21-46); MONOCYTES ABSOLUTE AUTO 1.04 K/mm3 (0.16-1.47); MONOCYTES PERCENT AUTO 15 % (4-13); Mean Corpuscular HGB Conc 33.5 g/dL (31.5-36.5); Mean Corpuscular Volume 98 fL (80-100); NEUTROPHILS ABSOLUTE AUTO 4.30 K/mm3 (1.96-9.15); NEUTROPHILS PERCENT AUTO 61 % (41-73); NRBC ABSOLUTE 0.00 K/mm3 (0.00-0.02); NRBC Auto 0.0 /100 WBC (0.0-0.2); Platelet Count 256 K/mm3 (150-400); RDW Coefficient Variation 13.0 % (11.7-14.2); RDW Standard Deviation 46.7 fL (35.1-46.3)
[2024-11-12] MEDS ORDERED: NS 1,000 ML IV SCH (18:05)
[2024-11-12] MEDS ORDERED: Ondansetron HCl 2 MG / ML 2ML Vial IV PRN (18:05)
[2024-11-12] MEDS ORDERED: Enoxaparin 80 MG/0.8 ML SYR SC SCH ×2 (19:00→21:00)
[2024-11-12] MEDS ORDERED: Norco 10-325 T1 EACH PO (19:51)
--- NOTE | 2024-11-12 20:03 | NUR ---
PT HERE VIA [facility] FROM ER. PT TRANSFERRED TO MEDICAL FLOOR BED. PT IS A&OX3. PT REPORTS A RECENT SPINAL FUSION - STERI STRIPS TO BACK IN PLACE - CD&I. PT DENIES ANY CHEST PAIN, BUT DOES RELAY BACK PAIN - REPORTED OFF AFTER ASSESSMENT COMPLETE - TO STEPHANIE BARRERA THAT PT IS REQUESTING PAIN MEDICATION. CALL LIGHT WITHIN REACH. BED IN LOW POSITION.
[2024-11-12 20:17] VITALS: BP 178/64
--- NOTE | 2024-11-12 20:51 | NUR ---
NO PAS APPLIED - CURRENTLY CONTRAINDICTED PER ORDER.
[2024-11-12 21:05] LABS: Source, Urine Foley catheter
[2024-11-12] MEDS ORDERED: HYDROcodone 10-APAP 325 TAB PO PRN (21:05)
[2024-11-12 21:10] LABS: Bilirubin, Urine Neg (Neg); Glucose Qualitative, Urine Neg (Neg); Ketones, Urine Neg (Neg); Leukocyte Esterase, Urine Neg (Neg); Protein, Urine 1+ (Neg); Specific Gravity, Urine 1.010 (1.003-1.022); Urobilinogen, Urine NORM (Normal)
[2024-11-12 21:28] LABS: Color, Urine Pale Yellow (P-Yellow)
[2024-11-12 21:30] LABS: White Blood Cells, Urine 0-2 /hpf (0-5)
[2024-11-12] MEDS ORDERED: Polyethylene Glycol 3350 17 gm PO SCH (21:40)
[2024-11-13] VITALS (7 sets, daily range): BP systolic 125–157; BP diastolic 54–65
[2024-11-13 04:42] LABS: Hematocrit 32.4 % (33.0-51.0); Hemoglobin 11.0 g/dL (11.5-16.0); Mean Corpuscular HGB Conc 34.0 g/dL (31.5-36.5); Mean Corpuscular Volume 98 fL (80-100); NRBC ABSOLUTE 0.00 K/mm3 (0.00-0.02); NRBC Auto 0.0 /100 WBC (0.0-0.2); Platelet Count 266 K/mm3 (150-400); RDW Coefficient Variation 13.2 % (11.7-14.2); RDW Standard Deviation 47.5 fL (35.1-46.3)
[2024-11-13 05:05] LABS: Anion Gap 6.0 mmol/L (3-11); Blood Urea Nitrogen 18.0 mg/dL (8-24); CO2, Blood 31.0 mmol/L (21-32); Calcium, Blood 8.8 mg/dL (8.5-10.1); Chloride, Blood 98.0 mmol/L (98-108); Creatinine, Blood 1.03 mg/dL (0.40-1.00); Glucose, Blood 102.0 mg/dL (70-99); Potassium, Blood 3.7 mmol/L (3.5-5.5); Sodium, Blood 131.0 mmol/L (136-145)
--- NOTE | 2024-11-13 05:19 | NUR ---
SHIFT SUMMARY PT ALERT AND ORIENTED TIMES 3-4. PT ADMITTED FOR PULMONARY EMBOLISM LOWER LEFT LOBE. . PT IS COOPERATIVE WITH CARE. PT IS ON TELE WITH 2L O2 NASAL CANULA. PT HAS DOMÍNGUEZ CATH. PT IS FROM [facility]. PT IS COOPERATIVE WITH STAFF REGARDING CARE. CALL LIGHT WITHIN REACH, RAILS TIMES 2, BED IN LOW POSITION.
[2024-11-13] MEDS ORDERED: LEVOTHYROXINE50 MC9 PO (11:57)
[2024-11-13] MEDS ORDERED: MULVITA PO (11:59)
--- NOTE | 2024-11-13 17:44 | NUR ---
Pt is alert and oriented x4; pleasant and cooperative with care. Pt with c/o pain in lower back and medication administered per EMAR with some results. Medication reconciliation completed and new orders obtained. Pt has denied CP, N/V/D, or significant SOB. All medications administered per EMAR. Pt marcelino catheter patent and draining yellow urine. Pt utilizing call light appropriately; call light within reach and bed in lowest position. Will continue to monitor until next shift nurse arrives and report is given.
--- NOTE | 2024-11-14 03:13 | NUR ---
SUMMARY: PT A/OX4, IS PLEASANT AND COOPERATIVE W/CARE AND CALLS APPROPRIATELY TO SPECIFY NEEDS. SHE HAD A RECENT SPINAL FUSION W/STERI STRIPS C/D/I TO MIDSPINE HEALING INCISION. OTTO RECEIVED PRN FOR TOLERABLE RELIEF OF BACK AND LOW BODY PAIN. SHE'S CURRENTLY ON BEDREST PENDING PT CONSULT AND IS A 1PA W/REPOSITIONING. PT REPORTS ONGOING CONSTIPATION AND BOWEL MEDS WERE RECEIVED PER EMAR. ABDO IS SOFT, NON-TENDER AND SHE DENIES ANY DISTENSION. DOMÍNGUEZ IS PATENT/DRAINING S/P SURGERY ON 11/07/24. SHE'S ON 2L O2 VIA NC W/CONT BIOX INTACT AND DIMINISHED LLL LS WHERE PE IS NOTED TO BE PRESENT AND SHE REMAINS PACED AT 60'S BPM ON TELEMETRY. NO ACUTE CHANGES, VSS/AFEBRILE. WILL REPORT TO DAY RN.
[2024-11-14 03:55] VITALS: BP 150/79
[2024-11-14 04:54] LABS: BASOPHILS ABSOLUTE AUTO 0.03 K/mm3 (0.00-0.23); BASOPHILS PERCENT AUTO 1 % (0-2); EOSINOPHILS ABSOLUTE AUTO 0.26 K/mm3 (0.00-0.68); EOSINOPHILS PERCENT AUTO 4 % (0-6); Hematocrit 31.4 % (33.0-51.0); Hemoglobin 10.7 g/dL (11.5-16.0); IMMATURE GRAN ABSOLUTE AUTO 0.01 K/mm3 (0.00-0.10); IMMATURE GRAN PERCENT AUTO 0 % (0-1); LYMPHOCYTES ABSOLUTE AUTO 1.62 K/mm3 (0.84-5.20); LYMPHOCYTES PERCENT AUTO 27 % (21-46); MONOCYTES ABSOLUTE AUTO 0.87 K/mm3 (0.16-1.47); MONOCYTES PERCENT AUTO 14 % (4-13); Mean Corpuscular HGB Conc 34.1 g/dL (31.5-36.5); Mean Corpuscular Volume 97 fL (80-100); NEUTROPHILS ABSOLUTE AUTO 3.29 K/mm3 (1.96-9.15); NEUTROPHILS PERCENT AUTO 54 % (41-73); NRBC ABSOLUTE 0.00 K/mm3 (0.00-0.02); NRBC Auto 0.0 /100 WBC (0.0-0.2); Platelet Count 312 K/mm3 (150-400); RDW Coefficient Variation 13.2 % (11.7-14.2); RDW Standard Deviation 47.4 fL (35.1-46.3)
[2024-11-14 05:21] LABS: Anion Gap 6.0 mmol/L (3-11); Blood Urea Nitrogen 16.0 mg/dL (8-24); CO2, Blood 30.0 mmol/L (21-32); Calcium, Blood 8.9 mg/dL (8.5-10.1); Chloride, Blood 101.0 mmol/L (98-108); Creatinine, Blood 0.91 mg/dL (0.40-1.00); Glucose, Blood 106.0 mg/dL (70-99); Potassium, Blood 4.0 mmol/L (3.5-5.5); Sodium, Blood 133.0 mmol/L (136-145)
[2024-11-14] MEDS ORDERED: FentaNYL Citrate 50 MCG/ML 2 ML Injection IV PRN (05:45)
--- NOTE | 2024-11-14 05:45 | NUR ---
PAIN NOT WELL MANAGED W/RECENT NORCO DOSE. MADE AWARE AND FENTANYL 25-50 MCG Q4H PRN RX'D AND TO BE RECEIVED.
[2024-11-14 08:01] VITALS: BP 155/63
[2024-11-14 11:37] VITALS: BP 104/52
[2024-11-14 15:25] VITALS: BP 145/64
[2024-11-14] MEDS ORDERED: Docusate Sodium/Senna 1 Tab PO SCH (17:00)
--- NOTE | 2024-11-14 18:47 | NUR ---
SUMMARY PT WORKED WITH PHYSICAL THERAPY TODAY. GOT UP STAND-BY ASSIST WITH FWW/GB. PT ALSO HAD HOME O2 EVAL COMPLETED AND DOES NOT QUALIFY FOR O2. HOWEVER PATIENT TO HAVE OVERNIGHT SLEEP STUDY TONIGHT. PT HAS NOT HAD A BM FOR MORE THAN A WEEK. WAS ON MIRILAX BID. DR. LAFLEUR ADDED DOCUSATE SODIUM BID WELL PRN DULCOLAX. PT DID NOT WANT TO TRY SUPPOSITORY THIS EVENING. PT DOMÍNGUEZ WAS REMOVED THIS MORNING BEFORE 11 AM. PT HAS URGE TO VOID AND ATTEMPTED WAS TRICKLE OUT. BLADDER SCAN COMPLETED AND WAS 231 AT ABOUT 1615. PT HAS NOT BEEN DRINKING TOO MUCH FLUIDS TODAY. WILL SCAN AGAIN IF NO VOID PER PROTOCOL. PT PAIN TO RIGHT HIP/BUTTOCKS, PRN NORCO GIVEN. PT UP TO SHOWER TODAY. PT ON TELE IS AV PACED, NO ACUTE EVENTS ON TELE. PT ABLE TO MAKE NEEDS KNOWN ANC CALLING APPROPRIATELY. PLAN HOME WITH HOME HEALTH WHEN VOIDING AND HAS A BOWEL MOVEMENT.
[2024-11-14 19:56] VITALS: BP 135/56
[2024-11-15 03:12] VITALS: BP 153/71
[2024-11-15 05:16] LABS: BASOPHILS ABSOLUTE AUTO 0.04 K/mm3 (0.00-0.23); BASOPHILS PERCENT AUTO 1 % (0-2); EOSINOPHILS ABSOLUTE AUTO 0.23 K/mm3 (0.00-0.68); EOSINOPHILS PERCENT AUTO 3 % (0-6); Hematocrit 31.6 % (33.0-51.0); Hemoglobin 10.8 g/dL (11.5-16.0); IMMATURE GRAN ABSOLUTE AUTO 0.04 K/mm3 (0.00-0.10); IMMATURE GRAN PERCENT AUTO 1 % (0-1); LYMPHOCYTES ABSOLUTE AUTO 1.51 K/mm3 (0.84-5.20); LYMPHOCYTES PERCENT AUTO 21 % (21-46); MONOCYTES ABSOLUTE AUTO 0.92 K/mm3 (0.16-1.47); MONOCYTES PERCENT AUTO 13 % (4-13); Mean Corpuscular HGB Conc 34.2 g/dL (31.5-36.5); Mean Corpuscular Volume 98 fL (80-100); NEUTROPHILS ABSOLUTE AUTO 4.30 K/mm3 (1.96-9.15); NEUTROPHILS PERCENT AUTO 61 % (41-73); NRBC ABSOLUTE 0.00 K/mm3 (0.00-0.02); NRBC Auto 0.0 /100 WBC (0.0-0.2); Platelet Count 350 K/mm3 (150-400); RDW Coefficient Variation 13.2 % (11.7-14.2); RDW Standard Deviation 47.5 fL (35.1-46.3)
--- NOTE | 2024-11-15 05:44 | NUR ---
SHIFT SUMMARY: A&OX4. ABLE TO MAKE ALL NEEDS KNOWN. 1 ASSIST WITH WALKER. SLEEP STUDY PERFORMED TONIGHT (11/14/24). DOMÍNGUEZ REMOVED YESTERDAY WITH SOME RETENTION. PT ATTEMPTED TO USE BSC AND WAS ABLE TO VOID A SMALL AMOUNT. POST VOID SCAN SHOWED >700 MLS STILL PRESENT IN BLADDER. PROVIDER CALLED AND RECEIVED ORDERS TO STRAIGHT CATH PT AND RESCAN IN 6 HOURS IF NO URINE OUTPUT. 775 MLS URINE REMOVED FROM BLADDER. RECHECK AT 1000 IF PT STILL UNABLE TO VOID. PT CURRENTLY ON 2 LPM O2 VIA NC CONTINOUS WHILE SLEEPING. PT ON RA DURING THE DAY. LUMBAR SURGICAL SITE STERI STRIPS STILL IN PLACE. STILL NO BM. SUPPOSITORY NOT GIVEN DUE TO SLEEP STUDY. PT CURRENTLY RESTING COMFORTABLY IN BED AT LOWEST POSITION WITH CALL LIGHT WITHIN REACH.
[2024-11-15 08:03] VITALS: BP 117/54
[2024-11-15 11:32] VITALS: BP 140/63
[2024-11-15 12:02] LABS: Anion Gap 9.0 mmol/L (3-11); Blood Urea Nitrogen 19.0 mg/dL (8-24); CO2, Blood 30.0 mmol/L (21-32); Calcium, Blood 9.3 mg/dL (8.5-10.1); Chloride, Blood 98.0 mmol/L (98-108); Creatinine, Blood 0.96 mg/dL (0.40-1.00); Glucose, Blood 95.0 mg/dL (70-99); Potassium, Blood 4.4 mmol/L (3.5-5.5); Sodium, Blood 133.0 mmol/L (136-145)
[2024-11-15] MEDS ORDERED: ELIQUIS5 M2 PO (15:05)
[2024-11-15] MEDS ORDERED: DOCUZEN 8.6-501 EACH PO (15:07)
[2024-11-15] MEDS ORDERED: MIRALAX17 GM PO (15:07)
[2024-11-15 15:26] VITALS: BP 141/53
[2024-11-15 20:03] VITALS: BP 133/55
[2024-11-16 03:20] VITALS: BP 127/62
--- NOTE | 2024-11-16 05:58 | NUR ---
SHIFT SUMMARY A&OX4. ABLE TO MAKE ALL NEEDS KNOWN. INCONTINENCE EPISODE OF STOOL AT START OF SHIFT. PT SAT ON BEDPAN FOR A TIME TO TRY TO FINISH ELIMINATING. PT CLEANED UP AND O2 APPLIED AT 2 LPM PER RT ORDERS. PT HAD PAIN IN HIPS AND LOWER EXTREMETIES AND MEDICATED PER EMAR. PT WAS ABLE TO SLEEP PEACEFULLY THROUGHOUT SHIFT WITH NO FURTHER COMPLAINT OF PAIN. DOMÍNGUEZ CATHETER PATENT AND DRAINING LIGHT YELLOW URINE. TO CURRENTLY RESTING COMFORTABLY IN BED AT LOWEST POSITION WITH CALL LIGHT WITHIN REACH.
[2024-11-16 07:21] VITALS: BP 122/56
[2024-11-16 11:05] VITALS: BP 117/50
--- NOTE | 2024-11-16 15:16 | NUR ---
DISCHARGE NOTE PT D/C HOME AT 1515. PT PROVIDED W/ VERBAL AND WRITTEN INSTRUCTIONS AND REPORTED UNDERSTANDING. PT A&OX4, VSS, AMB W/ ASSIST, TOLERATING PO, VOIDING, AND DENIED PAIN. DOMÍNGUEZ REMAINED IN PLACE. BELONGINGS WERE RETURNED AND PT ESCOURTED OUT VIA W/C BY TRANSPORT.
== END 2024-11-16 15:25 | disposition home health service (06) | DRG 175 ==
LOC: ER 14:22 → MEDS 18:02
PROVIDERS: Emergency Medicine; Family Medicine; Internal Medicine; Nurse Practitioner Acute Care; ADMIT Internal Medicine
DX: I26.93 Single subsegmental thrombotic pulmonary embolism without acute cor pulmonale (principal); J96.01 Acute respiratory failure with hypoxia; E87.1 Hypo-osmolality and hyponatremia; I26.99 Other pulmonary embolism without acute cor pulmonale; E03.9 Hypothyroidism, unspecified; M79.7 Fibromyalgia; I12.9 Hypertensive chronic kidney disease with stage 1 through stage 4 chronic kidney disease, or unspecified chronic kidney disease; E66.01 Morbid (severe) obesity due to excess calories; N18.30 Chronic kidney disease, stage 3 unspecified; D63.1 Anemia in chronic kidney disease; R54 Age-related physical debility; G89.29 Other chronic pain; K59.00 Constipation, unspecified; R33.9 Retention of urine, unspecified; Z86.718 Personal history of other venous thrombosis and embolism; Z90.49 Acquired absence of other specified parts of digestive tract; Z95.0 Presence of cardiac pacemaker; Z98.1 Arthrodesis status; Z88.2 Allergy status to sulfonamides; Z88.5 Allergy status to narcotic agent; Z88.7 Allergy status to serum and vaccine; Z88.8 Allergy status to other drugs, medicaments and biological substances; Z79.890 Hormone replacement therapy; Z79.899 Other long term (current) drug therapy; Z68.32 Body mass index [BMI] 32.0-32.9, adult
CPT/HCPCS: 36415; 51702; 71260; 80048; 80053; 81001; 83880; 84484; 85025; 85027; 93005; 93010; 93306; 93970; 94761; 94762; 97110; 97116; 97162; 99285-25; A9270; J1650; J3010; J7030; Q9967

== ENCOUNTER 2024-11-19 11:45 | Emergency (ER) | payer MEDICARE ==
[~2024-11-19] VITALS: Ht 157.5 cm; Wt 83.9 kg
[~2024-11-19 11:45] MED LIST changes: +DOCUZEN 8.6-501 EACH PO; +ELIQUIS5 M2 PO; +LEVOTHYROXINE50 MC9 PO; +MIRALAX17 GM PO; +MULVITA PO; +Norco 10-325 T1 EACH PO
[2024-11-19 12:05] VITALS: BP 143/66
[2024-11-19 13:00] LABS: Source, Urine Foley catheter
[2024-11-19 13:22] LABS: Bilirubin, Urine Neg (Neg); Glucose Qualitative, Urine Neg (Neg); Ketones, Urine Neg (Neg); Leukocyte Esterase, Urine 1+ (Neg); Protein, Urine 1+ (Neg); Specific Gravity, Urine 1.005 (1.003-1.022); Urobilinogen, Urine NORM (Normal)
[2024-11-19 13:45] LABS: Color, Urine Pale Yellow (P-Yellow)
== END 2024-11-19 14:18 | disposition home or self-care (01) ==
LOC: ER 11:45
PROVIDERS: Physician Assistant
DX: T83.091A Other mechanical complication of indwelling urethral catheter, initial encounter (principal); I12.9 Hypertensive chronic kidney disease with stage 1 through stage 4 chronic kidney disease, or unspecified chronic kidney disease; N18.9 Chronic kidney disease, unspecified; Z95.0 Presence of cardiac pacemaker; Z88.2 Allergy status to sulfonamides; Z88.7 Allergy status to serum and vaccine; Z88.8 Allergy status to other drugs, medicaments and biological substances; Z79.899 Other long term (current) drug therapy; Z79.01 Long term (current) use of anticoagulants; Z59.89 Other problems related to housing and economic circumstances
CPT/HCPCS: 51702; 81001; 99283-25

== ENCOUNTER 2024-11-27 14:24 | Emergency (ER) | payer MEDICARE ==
[~2024-11-27] VITALS: Ht 157.5 cm; Wt 81.7 kg
[2024-11-27 15:33] LABS: Prothrombin Time Results 13.5 Sec (9.7-11.5)
[2024-11-27 15:35] LABS: BASOPHILS ABSOLUTE AUTO 0.05 K/mm3 (0.00-0.23); BASOPHILS PERCENT AUTO 1 % (0-2); EOSINOPHILS ABSOLUTE AUTO 0.25 K/mm3 (0.00-0.68); EOSINOPHILS PERCENT AUTO 3 % (0-6); Hematocrit 31.4 % (33.0-51.0); Hemoglobin 10.5 g/dL (11.5-16.0); IMMATURE GRAN ABSOLUTE AUTO 0.02 K/mm3 (0.00-0.10); IMMATURE GRAN PERCENT AUTO 0 % (0-1); LYMPHOCYTES ABSOLUTE AUTO 2.25 K/mm3 (0.84-5.20); LYMPHOCYTES PERCENT AUTO 27 % (21-46); MONOCYTES ABSOLUTE AUTO 0.92 K/mm3 (0.16-1.47); MONOCYTES PERCENT AUTO 11 % (4-13); Mean Corpuscular HGB Conc 33.4 g/dL (31.5-36.5); Mean Corpuscular Volume 98 fL (80-100); NEUTROPHILS ABSOLUTE AUTO 4.90 K/mm3 (1.96-9.15); NEUTROPHILS PERCENT AUTO 58 % (41-73); NRBC ABSOLUTE 0.00 K/mm3 (0.00-0.02); NRBC Auto 0.0 /100 WBC (0.0-0.2); Platelet Count 413 K/mm3 (150-400); RDW Coefficient Variation 13.8 % (11.7-14.2); RDW Standard Deviation 49.7 fL (35.1-46.3)
[2024-11-27 16:04] LABS: Alanine Aminotransfer (ALT/SGP 19.0 U/L (12-78); Albumin, Blood 3.2 g/dL (3.4-5.0); Albumin/Globulin Ratio 0.9 (0.8-1.8); Anion Gap 11.0 mmol/L (3-11); Aspartate Aminotrans (AST/SGOT 23.0 U/L (12-37); Bilirubin, Total 0.3 mg/dL (0.1-1.0); Blood Urea Nitrogen 17.0 mg/dL (8-24); CO2, Blood 24.0 mmol/L (21-32); Calcium, Blood 9.1 mg/dL (8.5-10.1); Chloride, Blood 103.0 mmol/L (98-108); Creatinine, Blood 0.87 mg/dL (0.40-1.00); Globulin, Blood 3.7 g/dL (2.2-4.0); Glucose, Blood 101.0 mg/dL (70-99); Potassium, Blood 4.0 mmol/L (3.5-5.5); Sodium, Blood 134.0 mmol/L (136-145); Total Protein, Blood 6.9 g/dL (6.4-8.2)
[2024-11-27 18:15] VITALS: BP 155/62
== END 2024-11-27 18:31 | disposition home or self-care (01) ==
LOC: ER 14:24
PROVIDERS: Emergency Medicine
DX: I26.99 Other pulmonary embolism without acute cor pulmonale (principal); I12.9 Hypertensive chronic kidney disease with stage 1 through stage 4 chronic kidney disease, or unspecified chronic kidney disease; N18.9 Chronic kidney disease, unspecified; E03.9 Hypothyroidism, unspecified; Z79.01 Long term (current) use of anticoagulants; Z79.899 Other long term (current) drug therapy; Z79.890 Hormone replacement therapy; Z88.2 Allergy status to sulfonamides; Z88.1 Allergy status to other antibiotic agents; Z88.7 Allergy status to serum and vaccine; Z88.8 Allergy status to other drugs, medicaments and biological substances; Z95.0 Presence of cardiac pacemaker
CPT/HCPCS: 71046; 71260; 80053; 83880; 84484; 85025; 85610; 93005; 93010; 99285-25; Q9967